=== PATIENT | female | born 1995 | race African-American/Black ===

== ENCOUNTER 2025-08-19 08:22 | Outpatient (REF) | payer OTHER, SELFPAY ==
[2025-08-19 13:17] LABS: Appearance Urine Cloudy; Glucose Urine UA Negative (Negative); PH 5.5 (5.0-9.0); Specific Gravity - Urine >= 1.030 (1.005-1.025); UMIC TRIGGER UACC YES
[2025-08-19 13:36] LABS: MANUAL DIFF FLAG NO
[2025-08-19 13:37] LABS: UACC Culture Trigger YES
[2025-08-19 13:43] LABS: Hematocrit 38.7 % (37.0-47.0); Hemoglobin 12.6 g/dl (12.0-16.0); Imm Gran Abs Auto 0.01 X10*3/uL (0.00-0.03); Imm Gran Pct Auto 0.2 % (0.0-0.4); Lymphocytes Absolute Auto 1.3 X10*3/uL (1.2-4.9); Mean Corpuscular HGB Conc 32.6 g/dl (31.0-35.0); Mean Corpuscular Hemoglobin 28.3 pg (27.0-33.0); Mean Corpuscular Volume 87.0 fL (80.0-98.0); NRBC Abs Auto 0.000 X10*3/uL (0.0-0.012); NRBC Pct Auto 0.0 /100WBC (0.0-0.2); Platelet Count 265 X10*3/uL (160-400); Red Blood Count 4.45 X10*6/uL (4.20-5.50); White Blood Count 5.2 X10*3/uL (4.8-10.8)
[2025-08-19 14:20] LABS: Alanine Aminotransferase 11 U/L (0-31); Albumin Level 4.5 g/dL (3.5-5.0); Alkaline Phosphatase 44 U/L (39-117); Anion Gap 11 (12-20); Aspartate Amino Transferase 24 U/L (5-31); Blood Urea Nitrogen 8 mg/dL (9-16); Calcium 9.2 mg/dL (8.4-10.2); Carbon Dioxide 25 mmol/L (22-29); Chloride 106 mmol/L (96-108); Cholesterol 142 mg/dL (<200); Estimated Glomerular Filt Rate > 60; HDL Cholesterol 39 mg/dL (>40); Magnesium 2.0 mg/dL (1.6-2.6); Potassium 4.0 mmol/L (3.3-5.1); Sodium 139 mmol/L (135-145); Total Protein 7.4 g/dL (6.5-8.0); Triglycerides 50 mg/dL (<150)
[2025-08-19 14:28] LABS: Folate 9.8 ng/mL (> or = 4.0); Vitamin B12 360 pg/mL (200-900)
[2025-08-19 14:45] LABS: Microalbum/Creatinine Ratio Ur 84.2 ug/mg cr (<30)
[2025-08-20 03:57] LABS: HBS Num1 0.20 mIU/mL (0-7.99); HBsAGNum1 0.53 S/CO (0.00-0.99); HIV Num 1 0.05 S/CO (0.00-0.99); Hepatitis B Surface Antigen Negative (Negative); ~HepC Num1 0.11 S/CO (0.00-0.79); ~Hepatitis B Surface Antibody NONREACTIVE (Nonreactive); ~Hepatitis C Antibody Nonreactive (Nonreactive)
[2025-08-23 21:34] LABS: VITAMIN D (1,25 OH) D3 66 pg/mL; Vit D (1,25-Dihydroxy) Total 66 pg/mL (18-72); Vitamin D (1,25 OH) D2 <8 pg/mL
== END 2025-08-19 08:23 | disposition home or self-care (01) ==
LOC: HO.HKASLDS 08:22
PROVIDERS: PCP Student in an Organized Health Care Education/Training Program; Visit Provider Student in an Organized Health Care Education/Training Program
DX: M25.552 Pain in left hip (principal); M32.9 Systemic lupus erythematosus, unspecified; L65.9 Nonscarring hair loss, unspecified; G40.909 Epilepsy, unspecified, not intractable, without status epilepticus; D50.9 Iron deficiency anemia, unspecified; F12.90 Cannabis use, unspecified, uncomplicated; G89.29 Other chronic pain; R26.89 Other abnormalities of gait and mobility; E66.9 Obesity, unspecified; Z98.890 Other specified postprocedural states; Z12.10 Encounter for screening for malignant neoplasm of intestinal tract, unspecified; Z98.84 Bariatric surgery status; Z68.31 Body mass index [BMI] 31.0-31.9, adult
CPT/HCPCS: 36415; 80053; 80061; 81001; 82043; 82570; 82607; 82652; 82746; 83036; 83735; 84443; 85025; 86706; 86803; 87086; 87340; 87389; 96127; 99202

== ENCOUNTER 2025-08-19 08:22 | Outpatient (AMB) | payer OTHER, SELFPAY ==
--- NOTE | 2025-08-19 08:28 | MHC.PC.OV ---
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 Required: No Accompanied by: Self / Same As Patient Allergies No Known Allergies Allergy (Verified 08/19/25 08:32) Medication List - Last Reconciled 08/19/25 by Naveed Pérez MD acetaminophen 500 mg PO Q6H PRN ferrous fumarate 325 mg PO DAILY hydroxychloroquine 200 mg PO BID levetiracetam 750 mg PO BID losartan 100 mg PO DAILY mycophenolate mofetil 1,000 mg PO BID Tobacco use date assessed: 08/19/25 Dental Screening Dental Screen Date: 08/19/25 Did you have a dental visit in the last 12 months?: Yes Did you have a dental problem in the last 6 months where you did not have access to dental care?: No Was dental information given to patient?: Patient has dentist HPI HPI Comments History of Present Illness Details History of Present Illness The patient is a 30-year-old female presenting to [facility] primary care. Systemic Lupus Erythematosus: The patient has a history of lupus, for which she takes hydroxychloroquine and mycophenolate mofetil. She was followed by a search advertising strategist in [place], whom she last saw in February. Her follow-up frequency was initially monthly, then changed to every two months. She reports a history of kidney issues when the lupus was first diagnosed, which were being monitored. Alopecia: The patient has alopecia, which she reports is related to her lupus. It presents as a single patch on the left side of her scalp, though she notes hair on the rest of her head has grown back. She was previously treated with steroid injections by a windrower operator whom she last saw in December. Seizure Disorder: The patient has a history of seizures, with the last episode occurring in 2021. She continues to take levetiracetam and states she also takes losartan for seizure prophylaxis. Chronic Left Hip Pain: The patient reports chronic and worsening pain in her left hip, which has caused a limp. This is the same hip where she had a pin placed at age 13 following a fracture. The pain has been persistent and has become worse despite significant weight loss following her gastric sleeve surgery in 2019. She has not yet tried physical therapy for the pain. Iron Deficiency Anemia: The patient reports taking iron supplements for anemia. Surgical History: - Gastric sleeve surgery in 2019. - Left hip pinning at age 13. Medications: - Iron for anemia - Hydroxychloroquine for lupus - Mycophenolate mofetil for lupus - Levetiracetam for seizures - Losartan, reported as being for seizures Social History: - Substance Use: Smokes marijuana, about 1.5 joints on her days off. - Tobacco Use: Denies cigarette use, but will smoke one occasionally under stress. - Alcohol Use: Denies drinking alcohol. - Employment: Works at [employer]. - Residence: Recently relocated from [place], [place]. - Weight Management: History of obesity with a weight of 297 pounds, status post gastric sleeve in 2019 with subsequent weight loss. Family History: - Reports her father is . Past Medical History - Systemic lupus erythematosus with associated alopecia and past kidney involvement. - Seizure disorder, last episode in 2021. - Iron deficiency anemia. - History of obesity, status post gastric sleeve surgery in 2019. Health Maintenance - The patient is establishing care as a new patient. - Pap smear: The patient's last Pap smear was approximately one year ago. - Labs have been ordered for HIV, hepatitis B, hepatitis C, a lipid panel, magnesium, and hemoglobin A1c. [facility] Medical History (Updated 08/19/25 @ 18:36 by Naveed Pérez MD) Class 1 obesity Chronic left hip pain Marijuana smoker Iron deficiency anemia Seizure disorder Alopecia Lupus (systemic lupus erythematosus) Surgical History (Updated 08/19/25 @ 18:36 by Naveed Pérez MD) History of bariatric surgery History of hip surgery H/O gastric sleeve History of surgery on lower extremity Family History (Updated 08/19/25 @ 08:37 by Koko Diaz CMA) Mother Hypertension Diabetes Asthma Cancer Social History (Updated 08/19/25 @ 08:37 by Koko Diaz CMA) Housing: Apartment Alcohol intake: current Comment: ocasionally Patient Tobacco Use Status: Current everyday Tobacco user e-Cigarette/Vaping Use: Currently Using Substance Use Type: Marijuana service: No Current occupational status: employed 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 1. Little interest or pleasure in doing things: not at all 2. Feeling down, depressed, or hopeless: not at all 3. Trouble falling or staying asleep, or sleeping too much: not at all 4. Feeling tired or having little energy: not at all 5. Poor appetite or overeating: not at all 6. Feeling bad about yourself - or that you are a failure or have let yourself or your family down: not at all 7. Trouble concentrating on things, such as reading the newspaper or watching television: not at all 8. Moving or speaking so slowly that other people could have noticed. Or the opposite - being so fidgety or restless that you have been moving around a lot more than usual: not at all 9. Thoughts that you would be better off or of hurting yourself in some way: not at all Total score: 0 Depression Screening Interpretation: Negative Depression Screening Done: Yes 83571 - PHQ-9 Billing: Yes Source: Developed by Drs. Sadiq Woodard, Odette Abebe, Hank Carr and colleagues, with an educational annmarie from [employer]. Thrive Questionnaire Date Thrive assessed: 08/19/25 I am a: Patient What is your living situation today?: I have a steady place to live Within the past 12 months, did the food you bought not last and you didn't have the money to get more?: I choose not to answer this question Within the past 12 months, did you worry whether your food would run out before you got money to buy more?: I choose not to answer this question Do you have trouble paying for medicines?: No Do you have trouble getting transportation to medical appointments?: No Do you have trouble paying your heating and electricity bill?: No Do you have trouble taking care of your child, family member or friend?: No Are you currently unemployed and looking for a job?: No Are you interested in more education?: No Please select the resources that you would like help with: None Currently or been in a relationship where the following occur: I choose not to answer THRIVE Score: 0 AUDIT C Alcohol Use Questionnaire (AUDIT-C) 1. How often do you have a drink containing alcohol?: Never Total Score: 0 MICHAEL-7 AMB Questionnaire MICHAEL-7 Date MICHAEL - 7 assessed: 08/19/25 Feeling nervous, anxious, or on edge: 0 = Not at all Not being able to stop or control worryin = Not at all Worrying too much about different things: 0 = Not at all Trouble relaxin = Not at all Being so restless that it is hard to sit still: 0 = Not at all Becoming easily annoyed or irritable: 0 = Not at all Feeling afraid as if something awful might happen: 0 = Not at all Total MICHAEL-7 score (0-4 normal; 5-9 mild; 10-14 moderate; 15-21 severe): 0 Source: Developed by Drs. Sadiq Woodard, Odette Abebe, Hank Carr and colleagues, with an educational annmarie from [employer]. MICHAEL-7 Assessment Billing MICHAEL-7 Assessment Tool: MICHAEL-7 Assessment 58136 Review of Systems Narrative Review of Systems - Neurological: Reports a history of seizures, but denies any episodes since 2021. - Musculoskeletal: Reports worsening chronic pain and limping involving the left hip. - Integumentary: Reports a patch of hair loss on the left side of her scalp. - Gynecological: Reports her last Pap smear was about a year ago. 10-point ROS reviewed and negative except as noted in HPI Physical exam (Primary Care) Vital Signs: Last Vital Signs Temp 98.1 F 08/19/25 08:37 Pulse 63 08/19/25 08:37 Resp 17 08/19/25 08:37 BP 113/76 08/19/25 08:37 Pulse Ox 98 08/19/25 08:37 Oxygen Delivery Method Room Air 08/19/25 08:37 BMI result Body Mass Index 31.2 Tobacco/Smoking Status: Tobacco use Status Tobacco use date assessed 08/19/25 08/19/25 08:39 Patient Tobacco Use Status Current everyday Tobacco 08/19/25 08:39 e-Cigarette/Vaping Use Currently Using 08/19/25 08:39 PHQ-9: PHQ-9 Score PHQ-9: Total score 0 08/19/25 08:31 Depression Screening Interpretation: Negative Thrive Assessment: Date of Thrive Assessment Date Thrive assessed 08/19/25 08/19/25 08:31 Currently or been in a relationship where the following occur: I choose not to answer Narrative Physical Exam General: Well-appearing, in no acute distress. Vital signs: Blood pressure not elevated. HEENT: Normocephalic, atraumatic. PERRLA, EOMI. Conjunctiva clear, sclera anicteric. Oropharynx clear, mucous membranes moist. TMs intact bilaterally. Neck: Supple, no lymphadenopathy, no thyromegaly, no JVD or carotid bruits. Cardiovascular: RRR, normal S1/S2, no murmurs, rubs, or gallops. Peripheral pulses 2+ and symmetric. No edema. Respiratory: Lungs clear to auscultation bilaterally, no wheezes, rales, or rhonchi. Normal effort. Abdomen: Soft, non-tender, non-distended. Normoactive bowel sounds. No hepatosplenomegaly, no masses. MSK: Full range of motion, no joint swelling or deformity. Normal gait. Left hip with pain and history of pin placement. Skin: Warm, dry, intact. No rashes, lesions, or pallor. Alopecia noted on the left side of the scalp. Neuro: Alert and oriented x3. Cranial nerves II-XII intact. Strength 5/5 throughout. Sensation intact. Reflexes 2+ symmetric. Normal coordination and gait. Psych: Appropriate mood and affect. Normal judgment and insight. Coding Level of Care Code New Pt Level 4 (71944) Diagnoses Lupus (systemic lupus erythematosus) M32.9 Alopecia L65.9 Seizure disorder G40.909 Iron deficiency anemia D50.9 History of bariatric surgery Z98.84 Marijuana smoker F12.90 History of hip surgery Z98.890 Chronic left hip pain M25.552; G89.29 Limping R26.89 Class 1 obesity E66.9 Additional Codes MICHAEL-7 Assessment Billing - MICHAEL-7 Assessment Tool: MICHAEL-7 Assessment 11028 ([id number]) PHQ-9 - 88060 - PHQ-9 Billing: Yes ([id number]) Assessment & Plan Assessment & Plan (1) Lupus (systemic lupus erythematosus): Code(s): M32.9 - Systemic lupus erythematosus, unspecified Category: Medical (2) Alopecia: Code(s): L65.9 - Nonscarring hair loss, unspecified Category: Medical (3) Seizure disorder: Code(s): G40.909 - Epilepsy, unspecified, not intractable, without status epilepticus Category: Medical (4) Iron deficiency anemia: Code(s): D50.9 - Iron deficiency anemia, unspecified Category: Medical (5) History of bariatric surgery: Code(s): Z98.84 - Bariatric surgery status Category: Surgical (6) Marijuana smoker: Code(s): F12.90 - Cannabis use, unspecified, uncomplicated Category: Medical (7) History of hip surgery: Code(s): Z98.890 - Other specified postprocedural states Category: Surgical (8) Chronic left hip pain: Code(s): M25.552 - Pain in left hip; G89.29 - Other chronic pain Category: Medical (9) Limping: Code(s): R26.89 - Other abnormalities of gait and mobility (10) Class 1 obesity: Code(s): E66.9 - Obesity, unspecified Category: Medical Plan Consent Patient was informed and verbally consented to the use of an ambient scribe for clinic note documentation during this visit. Plan 1. Establishing Care/Health Maintenance - Ordered baseline laboratory studies, including magnesium, lipid panel, HIV, and hepatitis panel. - A follow-up appointment is scheduled in two weeks to review lab results. - Will provide medication refills as needed until she can establish care with specialists. 2. Systemic Lupus Erythematosus - A referral will be placed for the patient to establish care with a local search advertising strategist for ongoing management. 3. Chronic Left Hip Pain - An X-ray of the left hip has been ordered to evaluate the current state. - A referral for physical therapy will be placed for her hip pain. - Acetaminophen 500 mg has been prescribed for pain, with a recommendation to avoid NSAIDs due to her lupus diagnosis. - A referral to orthopedics will be considered after the X-ray results are reviewed. 4. Alopecia - A referral to dermatology will be placed for evaluation. 5. Seizure Disorder - Continue current medications for seizure prophylaxis. Discussion Notes I have discussed with the patient the plan to help her establish care here. We will be placing referrals to rheumatology for her lupus and dermatology for her alopecia. Regarding her worsening left hip pain, I have ordered an X-ray and a referral to physical therapy. I explained that a referral to orthopedics would be more productive after we have imaging results. I have also prescribed acetaminophen for pain and advised her to avoid ibuprofen due to her history of lupus and potential effects on her kidneys. I informed her that we will order a panel of baseline labs today and that she should follow up with me in two weeks to review the results. I reassured her that I can manage her medication refills in the interim until she is seen by the specialists. Patient Instructions - You will need to get bloodwork done today; the lab is in this building. - A referral has been placed for an X-ray of your left hip. - You will be contacted to set up appointments with a search advertising strategist, a windrower operator, and a physical therapist. - For your hip pain, you can take acetaminophen (Tylenol). - It is important to avoid ibuprofen (Advil/Motrin) because of your lupus. - Please continue taking all of your current medications as prescribed. - Schedule a follow-up appointment to see me in two weeks to discuss your lab results. Medical Decision Making The patient is a 30-year-old female with a complex medical history, including systemic lupus erythematosus, seizure disorder, and a history of bariatric surgery, who presents today to establish primary care after relocating. The primary goals of this visit are to ensure continuity of care for her chronic conditions and to evaluate a new complaint of worsening left hip pain. Given her history of lupus with prior kidney involvement, NSAIDs are contraindicated for her hip pain; therefore, acetaminophen was prescribed as a safer alternative. The patient's hip pain is chronic, dating back to a childhood injury, but has worsened despite significant weight loss, which raises concern for underlying structural issues. An X-ray is the appropriate initial imaging step, and a referral to orthopedics will be deferred until imaging is complete to facilitate a more efficient specialist consultation. Physical therapy is also indicated to address potential biomechanical or musculoskeletal components of her pain. Referrals to rheumatology and dermatology are critical to re-establish management of her lupus and associated alopecia, as she has not seen these specialists since February and December, respectively. Baseline labs are ordered to assess her current health status as a new patient. A close follow-up in two weeks will allow for review of all results and adjustment of the plan as needed. Total time spent caring for the patient today was 30 minutes. This includes time spent before the visit reviewing the chart, time spent documenting, and time spent reviewing laboratory results, diagnostic imaging, medications, performing a medically necessary evaluation, counseling on diagnoses, care coordination. Orders: Orders XR hip LT w PEL1V Today Z98.890 - Other specified postprocedural states Hepatitis B Surface Antibody Today Z12.10 - Encounter for screening for malignant neoplasm of intestinal tract, unspecified Hepatitis C Antibody Today Z12.10 - Encounter for screening for malignant neoplasm of intestinal tract, unspecified Lipid Panel Today Z12.10 - Encounter for screening for malignant neoplasm of intestinal tract, unspecified Magnesium Today Z12.10 - Encounter for screening for malignant neoplasm of intestinal tract, unspecified Microalbumin, Random (w Creat) Today Z12.10 - Encounter for screening for malignant neoplasm of intestinal tract, unspecified TSH reflex Free T4 Today Z12.10 - Encounter for screening for malignant neoplasm of intestinal tract, unspecified UA CC w/rflx Micro + Cult Today Z12.10 - Encounter for screening for malignant neoplasm of intestinal tract, unspecified PT Evaluation and Treatment Today Z98.890 - Other specified postprocedural states Complete Blood Count Auto Diff Today Z12.10 - Encounter for screening for malignant neoplasm of intestinal tract, unspecified Comprehensive Met. Panel Today Z12.10 - Encounter for screening for malignant neoplasm of intestinal tract, unspecified Hemoglobin A1c Today Z12.10 - Encounter for screening for malignant neoplasm of intestinal tract, unspecified Hepatitis B Surface Antigen Today Z12.10 - Encounter for screening for malignant neoplasm of intestinal tract, unspecified HIV Ab/Ag Today Z12.10 - Encounter for screening for malignant neoplasm of intestinal tract, unspecified Vitamin B12 and Folate Today Z12.10 - Encounter for screening for malignant neoplasm of intestinal tract, unspecified Vitamin D 1,25 dihydroxy Today Z12.10 - Encounter for screening for malignant neoplasm of intestinal tract, unspecified Referrals Rheumatology Referral M32.9 - Systemic lupus erythematosus, unspecified Dermatology Referral L65.9 - Nonscarring hair loss, unspecified Medications: New acetaminophen 500 mg PO Q6H PRN 30 caps 0RF pain
--- OUTSIDE RECORDS SUMMARY | 2025-08-19 08:33 | XMS_ITS | Clinical Summary ---
Author Organization [facility] Address [address] [place], [place] [id number] Phone Care Team Providers Care Disulfurizer Tender Name Role Phone Pcp, Unknown Primary Care Provider Unavailabl e Social History Tobacco Use Types Packs/Day Years Used Date Smoking Tobacco: Never Assessed Comments Unknown Sex and Gender Information Value Date Recorded Sex Assigned at Not on file Legal Sex Female 10:58 AM EDT Gender Identity Not on file Sexual Orientation Not on file Plan of Treatment Not on file Medical Devices Not on file Insurance [place] [address] [place] [address] [place] [address] [place] [address] [place] [address] [place] [address] [place] [address] [place] [address] [employer] Member Subscriber Plan / Payer (Ef fective 2025-Present) Name:Emilia Phipps Relation to Subscriber:Self Name:Emilia Phipps Payer ID:[id number] Group ID:[id number] Type:Medicaid Address: [place] [id number] [facility] [employer] Care Teams Disulfurizer Tender Relationship Specialty Start Date End Date Pcp, Unknown PCP - General 03/30/25 Additional Source Comments The information contained in this document represents components of the legal health record. It is not the complete legal health record.[facility]
[2025-08-19 08:37] VITALS: BP 113/76; PULSE 63; RESP 17; TEMP 36.7; O2SAT 98; BMI 31.2
== END 2025-08-19 09:00 | disposition home or self-care (01) ==
LOC: HO.HMCFMS 08:23
PROVIDERS: Visit Provider Student in an Organized Health Care Education/Training Program
DX: M32.9 Systemic lupus erythematosus, unspecified (principal); L65.9 Nonscarring hair loss, unspecified; G40.909 Epilepsy, unspecified, not intractable, without status epilepticus; D50.9 Iron deficiency anemia, unspecified; Z98.84 Bariatric surgery status; F12.90 Cannabis use, unspecified, uncomplicated; Z98.890 Other specified postprocedural states; M25.552 Pain in left hip; G89.29 Other chronic pain; R26.89 Other abnormalities of gait and mobility; E66.9 Obesity, unspecified

== ENCOUNTER 2025-09-23 14:07 | Outpatient (AMB) | payer OTHER, SELFPAY ==
[2025-09-23 14:20] VITALS: BP 128/58; PULSE 65; TEMP 36.8; O2SAT 100; BMI 31.2
--- NOTE | 2025-09-23 14:20 | MHC.PC.OV ---
Vital Signs 09/23/25 14:20 Height 5 ft 8.5 in Weight 208 lb BMI 31.2 BP 128/58 L Blood Pressure Location Lt brachial Position Sitting Pulse 65 Pulse Source Pulse Oximeter Temp 98.3 F Temp Source Oral Pulse Oximetry (%) 100 Oxygen Delivery Method Room Air Intake Visit Reasons: 2 wk - lab review Intake Note: Wants to discuss body aches and muscle relaxer Accompanied by: Self / Same As Patient Allergies No Known Allergies Allergy (Verified 09/23/25 14:40) Medication List - Last Reconciled 09/24/25 by Naveed Pérez MD acetaminophen ER 650 mg PO Q12H PRN ferrous fumarate 325 mg PO DAILY hydroxychloroquine 200 mg PO BID levetiracetam 750 mg PO BID losartan 100 mg PO DAILY mycophenolate mofetil 1,000 mg (2 x 500 mg) PO BID nitrofurantoin macrocrystal 100 mg PO Q12H Tobacco use date assessed: 09/23/25 Dental Screening Dental Screen Date: 09/23/25 Did you have a dental visit in the last 12 months?: Yes Was dental information given to patient?: Patient has dentist HPI HPI Comments History of Present Illness Details History of Present Illness The patient is a 30 year old female presenting for follow-up for systemic lupus erythematosus, management of chronic pain, and review of laboratory results. Systemic lupus erythematosus: The patient was diagnosed with systemic lupus erythematosus in mid-2021 and understands that she is immunocompromised as a result. Her current medications include hydroxychloroquine (Plaquenil) and mycophenolate. She has had her eyes checked this year, which is required due to Plaquenil use. The patient feels emotionally distressed by the chronic nature of her illness, reporting that her symptoms seem to worsen when she discusses it and that she is trying to isolate herself. She has an appointment scheduled with a satellite dish installer for January but is looking for an earlier appointment. Chronic pain: The patient reports generalized body pain, particularly in her back, hips, and legs, which she associates with her physically demanding job at [employer]. She reports the pain can be severe, stating she woke up one morning unable to move. She recently finished a prescription for acetaminophen 500 mg, which she found ineffective. She has a history of using muscle relaxants for pain. Kidney disease: The patient has a history of seeing a pickle pumper, although it has been a while. She also reports a history of urinary tract infections from time to time. A previous physician, Dr. Mccullough, had informed her about protein in her urine. Iron deficiency anemia: The patient takes ferrous fumarate 325 mg every two days to avoid constipation. Medications: - Acetaminophen 500 mg: for pain (finished, not effective) - Hydroxychloroquine (Plaquenil): for lupus, taken twice a day - Levetiracetam (Keppra) - Losartan 100 mg - Mycophenolate - Ferrous fumarate 325 mg: for iron, taken every two days - Muscle relaxants (unspecified): for pain, taken in the past as needed at night Social History: - Employment: The patient works at [employer] in a role that is physically demanding and contributes to her body pain. - Social Support and Coping: The patient reports isolating herself from family, preferring to work and keep her mind busy as a way to cope with her chronic illness. - Diet: The patient reports eating eggs and using whipped cream in her coffee. Diagnostic Results: - Lab results were reviewed: - Complete Blood Count: White blood cells, red blood cells, hemoglobin, and hematocrit are good. - Comprehensive Metabolic Panel: Sodium, potassium, renal function (creatinine and GFR), and liver function are good. - Glucose: Normal; the patient is not diabetic or prediabetic. - Lipid Panel: Triglycerides and bad cholesterol are good; HDL is 39 mg/dL (goal >40 mg/dL). - Vitamins: Vitamin B12 is 360 (normal range 200-900), and vitamin D is good. - Folate and Thyroid Function: Good. - Urinalysis: Reveals dehydration, proteinuria, increased microalbumin, positive blood (attributed to menstruation), and positive nitrites. Past Medical History - Systemic lupus erythematosus, diagnosed in mid-2021. - History of seeing a pickle pumper. - History of recurrent urinary tract infections. Health Maintenance - The patient is eligible for and wants to receive the influenza vaccine due to her immunocompromised status from lupus. - The patient confirms she had her yearly eye exam with Dr. Chavez, which is necessary due to her hydroxychloroquine use. - Discussed dietary changes to help raise HDL cholesterol, such as minding fat and dairy intake. - Advised to contact her insurance to find a satellite dish installer with earlier availability. [facility] Medical History (Updated 12/18/25 @ 06:58 by Naveed Pérez MD) UTI (urinary tract infection) Albuminuria Microalbuminuria Class 1 obesity Chronic left hip pain Marijuana smoker Iron deficiency anemia Seizure disorder Alopecia Lupus (systemic lupus erythematosus) Surgical History History of bariatric surgery History of hip surgery H/O gastric sleeve History of surgery on lower extremity Family History Mother Hypertension Diabetes Asthma Cancer Social History Housing: Apartment Alcohol intake: current Comment: ocasionally Patient Tobacco Use Status: Former Tobacco user e-Cigarette/Vaping Use: Currently Using Substance Use Type: Marijuana service: No Current occupational status: employed Current occupation: [employer] Cognitive needs: No Hearing needs: No Vision needs: No Questionnaire PHQ-9 Over the last 2 weeks, how often have you been bothered by any of the following problems? 1. Little interest or pleasure in doing things: not at all 2. Feeling down, depressed, or hopeless: not at all 3. Trouble falling or staying asleep, or sleeping too much: not at all 4. Feeling tired or having little energy: not at all 5. Poor appetite or overeating: not at all 6. Feeling bad about yourself - or that you are a failure or have let yourself or your family down: not at all 7. Trouble concentrating on things, such as reading the newspaper or watching television: not at all 8. Moving or speaking so slowly that other people could have noticed. Or the opposite - being so fidgety or restless that you have been moving around a lot more than usual: not at all 9. Thoughts that you would be better off or of hurting yourself in some way: not at all Total score: 0 Depression Screening Interpretation: Negative Depression Screening Done: Yes 29504 - PHQ-9 Billing: Yes Source: Developed by Drs. Sadiq Woodard, Odette Abebe, Hank Carr and colleagues, with an educational annmarie from [employer]. Thrive Questionnaire Date Thrive assessed: 09/23/25 I am a: Patient What is your living situation today?: I have a steady place to live Within the past 12 months, did the food you bought not last and you didn't have the money to get more?: I choose not to answer this question Within the past 12 months, did you worry whether your food would run out before you got money to buy more?: I choose not to answer this question Do you have trouble paying for medicines?: No Do you have trouble getting transportation to medical appointments?: No Do you have trouble paying your heating and electricity bill?: No Do you have trouble taking care of your child, family member or friend?: No Do you have trouble with day-to-day activities such as bathing, preparing meals, shopping, managing finances, etc.?: No Are you currently unemployed and looking for a job?: No Are you interested in more education?: No Please select the resources that you would like help with: None Currently or been in a relationship where the following occur: I choose not to answer THRIVE Score: 0 MICHAEL-7 AMB Questionnaire MICHAEL-7 Date MICHAEL - 7 assessed: 09/23/25 Feeling nervous, anxious, or on edge: 0 = Not at all Not being able to stop or control worryin = Not at all Worrying too much about different things: 0 = Not at all Trouble relaxin = Not at all Being so restless that it is hard to sit still: 0 = Not at all Becoming easily annoyed or irritable: 0 = Not at all Feeling afraid as if something awful might happen: 0 = Not at all Total MICHAEL-7 score (0-4 normal; 5-9 mild; 10-14 moderate; 15-21 severe): 0 Source: Developed by Drs. Sadiq Woodard, Odette Abebe, Hank Carr and colleagues, with an educational annmarie from [employer]. MICHAEL-7 Assessment Billing MICHAEL-7 Assessment Tool: MICHAEL-7 Assessment 14862 Review of Systems Narrative Review of Systems - General: Reports feeling tired and down. - Musculoskeletal: Reports generalized body pain, specifically in her back, hips, and legs, with difficulty moving. - Psychiatric: Reports feeling emotionally exhausted, annoyed by her chronic illness, and is socially isolating herself. - Genitourinary: Reports a history of urinary tract infections from time to time. 10-point ROS reviewed and negative except as noted in HPI Physical exam (Primary Care) Vital Signs: Last Vital Signs Temp 98.3 F 09/23/25 14:20 Pulse 65 09/23/25 14:20 BP 128/58 L 09/23/25 14:20 Pulse Ox 100 09/23/25 14:20 Oxygen Delivery Method Room Air 09/23/25 14:20 BMI result Body Mass Index 31.2 Tobacco/Smoking Status: Tobacco use Status Tobacco use date assessed 09/23/25 09/23/25 14:21 Patient Tobacco Use Status Former Tobacco user 09/23/25 14:41 e-Cigarette/Vaping Use Currently Using 09/23/25 14:21 PHQ-9: PHQ-9 Score PHQ-9: Total score 0 09/23/25 15:14 Depression Screening Interpretation: Negative Thrive Assessment: Date of Thrive Assessment Date Thrive assessed 09/23/25 09/23/25 14:21 Currently or been in a relationship where the following occur: I choose not to answer Narrative Physical Exam General: Well-appearing, in no acute distress, but reports feeling down and tired due to chronic illness. Vital signs: Within normal limits. HEENT: Normocephalic, atraumatic. PERRLA, EOMI. Conjunctiva clear, sclera anicteric. Oropharynx clear, mucous membranes moist. TMs intact bilaterally. Patient advised to have regular eye exams due to hydroxychloroquine use. Neck: Supple, no lymphadenopathy, no thyromegaly, no JVD or carotid bruits. Cardiovascular: RRR, normal S1/S2, no murmurs, rubs, or gallops. Peripheral pulses 2+ and symmetric. No edema. Respiratory: Lungs clear to auscultation bilaterally, no wheezes, rales, or rhonchi. Normal effort. Abdomen: Soft, non-tender, non-distended. Normoactive bowel sounds. No hepatosplenomegaly, no masses. MSK: Reports pain in back and legs, possibly related to work and lupus. Full range of motion, no joint swelling or deformity. Normal gait. Skin: Warm, dry, intact. No rashes, lesions, or pallor. Neuro: Alert and oriented x3. Cranial nerves II-XII intact. Strength 5/5 throughout. Sensation intact. Reflexes 2+ symmetric. Normal coordination and gait. Psych: Reports feeling down and tired due to chronic illness. No current therapy, but advised to consider speaking with a therapist. Appropriate mood and affect. Normal judgment and insight. Office Procedures Flu Questionnaire Does the patient have a severe egg allergy?: No Does the patient have severe life threatening allergies?: No Does the patient have a fever or illness today?: No Has the patient ever had Guillain-[place] Syndrome?: No Has the patient ever had any past reaction to a flu shot?: No Immunizations Fluarix [id number] (PF) 45 mcg (15 mcg x 3)/0.5 mL IM syringe Performing Provider: Naveed Pérez MD Performing Location: [facility] [place] Family [facility] Administered by: Ciara Sanchez CMA on 09/23/25 15:14 Dose Route Admin Location Dispensed Lot Number Expiration Date [facility] Charger Tester 0.5 mL IM Left Deltoid 0.5 mL [id number] 04/06/26 [id number] [employer] VIS Given Date VIS Provided VIS Publication Date 09/23/25 Single Vaccine 24 Eligibility Eligibility Date Funding Source Not [facility] Eligible 09/23/25 Private Coding Level of Care Code Est Pt Level 3 (83997) Add On Problem Visit Only Diagnoses Lupus (systemic lupus erythematosus) M32.9 History of hip surgery Z98.890 Chronic left hip pain M25.552; G89.29 Seizure disorder G40.909 Albuminuria R80.9 Iron deficiency anemia D50.9 UTI (urinary tract infection) N39.0 Additional Codes MICHAEL-7 Assessment Billing - MICHAEL-7 Assessment Tool: MICHAEL-7 Assessment 62893 ([id number]) PHQ-9 - 73226 - PHQ-9 Billing: Yes ([id number]) Assessment & Plan Assessment & Plan (1) Lupus (systemic lupus erythematosus): Code(s): M32.9 - Systemic lupus erythematosus, unspecified Category: Medical (2) History of hip surgery: Code(s): Z98.890 - Other specified postprocedural states Category: Medical (3) Chronic left hip pain: Code(s): M25.552 - Pain in left hip; G89.29 - Other chronic pain Category: Medical (4) Seizure disorder: Code(s): G40.909 - Epilepsy, unspecified, not intractable, without status epilepticus Category: Medical (5) Albuminuria: Code(s): R80.9 - Proteinuria, unspecified Category: Medical (6) Iron deficiency anemia: Code(s): D50.9 - Iron deficiency anemia, unspecified Category: Medical (7) UTI (urinary tract infection): Code(s): N39.0 - Urinary tract infection, site not specified Category: Medical Plan Consent Patient was informed and verbally consented to the use of an ambient scribe for clinic note documentation during this visit. Plan 1. Chronic Pain - Discontinue acetaminophen 500 mg. - Prescribed acetaminophen 650 mg extended-release, to be taken one tablet every 12 hours as needed for arthritis-type pain. - Prescribed a muscle relaxant 10 mg to be taken at night; instructed the patient she can cut the tablet in half if it is too strong. - Counseled to continue conservative measures such as heating pads and warm showers. - Advised to avoid NSAIDs like ibuprofen to protect kidney function. 2. Systemic Lupus Erythematosus - Sent a refill for hydroxychloroquine (Plaquenil) to the pharmacy. - Ensured mycophenolate was refilled for a 30-day supply. - Advised the patient to call her insurance to find a satellite dish installer who may have earlier availability than her current appointment in January. - Acknowledged the emotional toll of the chronic illness and provided information for a teletherapy service, though the patient declined a referral at this time. 3. Urinary Tract Infection And Proteinuria - Based on positive nitrites in the urinalysis and a history of UTIs, a suspected urinary tract infection will be treated. - Prescribed Macrobid (nitrofurantoin), one tablet twice daily for 5 days. - Due to proteinuria and increased microalbumin on urinalysis concerning for lupus-related kidney involvement, a referral will be placed to Nephrology. - The clinic will submit the referral, and the specialist's office will contact the patient to schedule an appointment. 4. Preventative Care - The patient was advised to get the flu vaccine today. 5. Iron Deficiency Anemia Management - Hemoglobin and hematocrit levels are good. - The patient should continue taking ferrous fumarate as she currently does, every two days. 6. Dyslipidemia - HDL cholesterol is slightly low at 39 mg/dL. - Provided dietary counseling regarding foods that can impact cholesterol, such as dairy fats. - Plan to recheck labs in three months. Discussion Notes I spoke with the patient about her visit today. We discussed her body pain, and I recommended increasing her acetaminophen to the 650 mg ER formulation and adding a muscle relaxant for nighttime use. I explicitly advised against using NSAIDs like ibuprofen to preserve her kidney function, which is particularly important given her lupus diagnosis. We reviewed her recent lab results. While her blood counts, kidney function tests, and electrolytes were reassuring, the urinalysis showed proteinuria, increased microalbumin, and positive nitrites. I explained that protein in the urine can be a sign of kidney damage from lupus, and that we must monitor this closely. Consequently, I am placing a referral to a pickle pumper for further evaluation and have prescribed a course of Macrobid for a concurrent suspected UTI. I acknowledged the significant emotional distress and frustration she is experiencing due to her chronic illness. While she currently is not interested in therapy, I provided her with the contact information for a mental health service should she change her mind. We will send refills for her Plaquenil and Mycophenolate. We scheduled a follow-up visit in three months to recheck her labs and review her progress. Patient Instructions - You should get your flu shot, as it is recommended for you. - For your pain, start taking Acetaminophen 650 mg extended-release. You can take one pill in the morning and one at night. - We are also prescribing a muscle relaxant (10 mg) to take at night. If it makes you feel too loopy, you can cut the pill in half. - Avoid taking anti-inflammatory drugs like ibuprofen or Aleve, as they can be harmful to your kidneys. - You can use heating pads and warm showers for your muscle pain. - Take the prescribed antibiotic, Macrobid, one pill in the morning and one at night for five days to treat the urinary tract infection. - We are sending a referral to a kidney specialist (pickle pumper) for you. Their office will call you to schedule an appointment. - Please call your insurance company to ask for a list of in-network rheumatologists to see if you can get an appointment sooner than January. - Continue taking your iron pill every other day. - We have sent refills for your hydroxychloroquine (Plaquenil) and mycophenolate to your pharmacy. - Please schedule a follow-up visit here in three months to check your labs again. Medical Decision Making The patient is a 30-year-old female with a history of systemic lupus erythematosus who presented for medication refills, management of chronic pain, and review of labs. Her chief complaints were generalized body pain, especially in the back and hips, which is likely musculoskeletal and exacerbated by her physical job. Management includes symptomatic control with scheduled acetaminophen 650 mg ER and a muscle relaxant, with strict advice to avoid NSAIDs due to the risk of renal injury in the setting of lupus. Review of recent laboratory studies was significant for new-onset proteinuria and microalbuminuria, with positive nitrites on urinalysis. Although her serum creatinine and GFR are currently within normal limits, these urinary findings are highly concerning for lupus nephritis and warrant urgent evaluation. A referral to nephrology is placed for this reason. Concurrently, given the positive nitrites and patient's history of recurrent UTIs, she will be treated empirically with Macrobid. The patient expressed significant emotional distress related to her chronic illness. While she was not receptive to a formal mental health referral at this time, the option was provided for future consideration. Her chronic medications, including hydroxychloroquine and mycophenolate, were refilled. The plan includes a follow-up in three months for lab monitoring. Total Time Statement 20 min Total time spent caring for the patient today includes pre-visit chart review, documentation, review of laboratory and diagnostic imaging results, medication reconciliation, medically necessary evaluation, counseling on diagnoses, care coordination, ordering appropriate tests and medications, review of tests performed by other providers, reporting test results to the patient, and communication with other healthcare providers. Orders: Orders Influenza [id number] Immunization 09/23/25 Z23 - Encounter for immunization Referrals Nephrology Referral M32.9 - Systemic lupus erythematosus, unspecified, R80.9 - Proteinuria, unspecified Medications: New acetaminophen ER 650 mg PO Q12H PRN 60 tabs 0RF pain nitrofurantoin macrocrystal must administer with a meal/food 100 mg PO Q12H 10 caps 0RF Refilled hydroxychloroquine 200 mg PO BID 180 tabs 0RF Discontinued acetaminophen Discontinued Reason: Doctor's Order 500 mg PO Q6H PRN 30 caps 0RF pain
--- OUTSIDE RECORDS SUMMARY | 2025-09-23 18:54 | XMS_ITS | Clinical Summary ---
Author Organization [facility] Address [address] [place], [place] [id number] Phone Care Team Providers Care Paint Technician Name Role Phone Pcp, Unknown Primary Care [...] Medical Devices Not on file Insurance [place] [address] [place] [address] [place] [address] [place] [address] [place] [address] [place] [address] [place] [address] A[employer] Member Subscriber Plan / Payer (Ef fective 2025-Present) Name:Emilia Phipps Relation to Subscriber:Self Name:Emilia Phipps Payer ID:[id number] Group ID:[id number] Type:Medicaid Address: [place] [id number] [facility] [employer] Care Teams Paint Technician Relationship Specialty Start Date End Date Pcp, Unknown PCP - General 03/30/25 Additional Source Comments The information contained in this document represents components of the legal health record. It is not the complete legal health record.[facility]
== END 2025-09-23 15:16 | disposition home or self-care (01) ==
LOC: HO.HMCFMS 14:08
PROVIDERS: PCP Student in an Organized Health Care Education/Training Program; Visit Provider Student in an Organized Health Care Education/Training Program
DX: Z23 Encounter for immunization (principal)

== ENCOUNTER → 2025-09-23 14:07 | Outpatient (BNVA) | payer OTHER, SELFPAY | PROVIDERS: PCP Family Medicine; Visit Provider Student in an Organized Health Care Education/Training Program | DX: Z23 Encounter for immunization (principal); M32.9 Systemic lupus erythematosus, unspecified; M25.552 Pain in left hip; G89.29 Other chronic pain; G40.909 Epilepsy, unspecified, not intractable, without status epilepticus; R80.9 Proteinuria, unspecified; R50.9 Fever, unspecified; N39.0 Urinary tract infection, site not specified; Z87.891 Personal history of nicotine dependence | CPT/HCPCS: 90471; 90656; 96127; 99212 ==

== ENCOUNTER 2025-10-05 09:18 | Outpatient (AMB) | payer OTHER, SELFPAY ==
--- NOTE | 2025-10-05 09:19 | AM.OFFWIN_ITS ---
Intake Vital Signs 10/05/25 09:20 10/05/25 09:36 Height 5 ft 8.5 in Weight 210 lb BMI 31.5 BP 140/94 H 146/97 H Blood Pressure Location Lt brachial Rt brachial Position Sitting Sitting Respiration 16 Pulse 70 Pulse Source Pulse Oximeter Temp 98 F Temp Source Oral Pulse Oximetry (%) 98 Oxygen Delivery Method Room Air Intake Visit Reasons: EP- Coughing Blood, Body Aches Intake Note: EP complains of productive cough since SundayOct 03 and blood in sputum (today), headache, nausea this Sunday. Patient Tobacco Use Status: Former Tobacco user Allergies No Known Allergies Allergy (Verified 10/05/25 09:32) Do you need a note to return to daycare/school/sports/work: Yes HPI HPI Comments History of Present Illness Details History of Present Illness The patient is a 30 year old female with a past medical history of lupus and seizure disorder presenting with cough, congestion, headache, and nausea. - The patient's symptoms began on Sunday and have progressively worsened - She reports coughing up phlegm mixed w ith blood, which she states is intermittent. She reports the last time that she cough, there was no blood. - Associated symptoms include waking up with nausea, congestion, intermittent m ild headaches, body aches - She reports intermittent shortness of breath but denies current symptom. - She denies sore throat, diarrhea, and significant nasal drainage - The patient denies any fevers at home. - She was potentially exposed to illness after visiting her aunt for [place], where some family members were sick. - She took DayQuil today for her symptom s. - She reports no history of blood clots, prolonged immobility, or recent long trips. - She denies any calf pain or swelling - There is no known family history of bl ood clots. Review of Systems Constitutional: Negative for fevers, chills HENT: Reports congestion. Negative for sore throat, ear pain Respiratory: Reports cough. Denies current shortness of breath, reports intermittent dyspnea Cardiac: Negative for chest pain,leg edema Gastrointestinal: Reports nausea. Negative for abdominal pain, vomiting, diarrhea, Musculoskeletal: Reports generalized myalgias. Denies calf pain Neurological: Reports headaches Physical Exam General Appearance: Normal appearance, well developed. No acute distress HEENT: Normocephalic, atraumatic. External ears and ear canals normal. TM without erythema or bulging. Mild nasal congestion and drainage present. Oropharynx clear without erythema or exudate. No cervical lymphadenopathy present. Cardiac: Regular rate and rhythm. No murmurs. Pulmonary: No respiratory distress. Clear to auscultation bilaterally. Musculoskeletal: Moving all extremities spontaneously and against gravity. No Calf TTP. Mental Status: Alert and Oriented x 3 Psychiatric: Normal mood. Normal affect. [facility] Medical History (Updated 09/24/25 @ 06:58 by Naveed Pérez MD) UTI (urinary tract infection) Albuminuria Microalbuminuria Class 1 obesity Chronic left hip pain Marijuana smoker Iron deficiency anemia Seizure disorder Alopecia Lupus (systemic lupus erythematosus) Surgical History History of bariatric surgery History of hip surgery H/O gastric sleeve History of surgery on lower extremity Family History Mother Hypertension Diabetes Asthma Cancer Social History Housing: Apartment Alcohol intake: current Comment: ocasionally Patient Tobacco Use Status: Former Tobacco user e-Cigarette/Vaping Use: Currently Using Substance Use Type: Marijuana service: No Current occupational status: employed 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 Cognitive needs: No Hearing needs: No Vision needs: No Physical Exam Vital Signs: Last Vital Signs Temp 98 F 10/05/25 09:20 Pulse 70 10/05/25 09:20 Resp 16 10/05/25 09:20 BP 146/97 H 10/05/25 09:36 Pulse Ox 98 10/05/25 09:20 Oxygen Delivery Method Room Air 10/05/25 09:20 BMI result Body Mass Index 31.5 Assessment & Plan Assessment & Plan (1) Cough: Code(s): R05.9 - Cough, unspecified Qualifiers: Cough type: acute Qualified Code(s): R05.1 - Acute cough (2) Viral respiratory infection: Code(s): J98.8 - Other specified respiratory disorders; B97.89 - Other viral agents as the cause of diseases classified elsewhere (3) Elevated blood pressure reading in office with diagnosis of hypertension: Code(s): I10 - Essential (primary) hypertension Plan - The patient's presentation with productive cough with occasional blood in sputum, myalgias, headaches, congestion, nausea, and recent sick contact is most consistent with a viral infection. - Physical exam revealed clear lungs to auscultation and patient has been afebrile- low concern for pneumonia - While her history of lupus raises concern for more serious pathology like pulmonary embolism (PE), her other symptoms, clear lung exam, and normal HR and SpO2 make this less likely. - The plan is to obtain a nasal swab for COVID-19, influenza, and RSV. - Recommended supportive care with rest, fluids, and [id number] medications like mucinex. - Provided a work note for today and tomorrow. - Counseling was provided on emergency warning signs, such as new fevers, chest pain, shortness of breath, or coughing up large amounts of blood, and to seek prompt medical attention if these occur. - The patient's blood pressure was elevated upon measurement. - She has history of hypertension. - She reports taking her losartan directly prior to arrival < 30 minutes ago. - Discussed medication may not have yet taken affect - The plan is to continue her current medication as prescribed and monitor. Patient was informed and verbally consented to the use of an ambient scribe for clinic note documentation during the visit. Orders: Orders SARS-CoV2/FLU/RSV Today R09.89 - Other specified symptoms and signs involving the circulatory and respiratory systems Coding Level of Care Code Est Pt Level 3 (48712) Diagnoses Acute cough R05.1 Cough type: acute Viral respiratory infection J98.8; B97.89 Elevated blood pressure reading in office with diagnosis of hypertension I10
[2025-10-05 09:20] VITALS: BP 140/94; PULSE 70; RESP 16; TEMP 36.6; O2SAT 98; BMI 31.5
[2025-10-05 09:36] VITALS: BP 146/97
--- OUTSIDE RECORDS SUMMARY | 2025-10-05 09:40 | XMS_ITS | Clinical Summary ---
Author Organization [facility] Address [address] [place], [place] [address] Phone Care Team Providers Care Apron Operator Name Role Phone Pcp, Unknown Primary Care [...] Medical Devices Not on file Insurance [place] [place] [address] [place] [address] [place] [address] [place] [address] [place] [address] [place] [place] [address] [employer] Member Subscriber Plan / Payer (Ef fective 2025-Present) Name:Emilia Phipps Relation to Subscriber:Self Name:Emilia Phipps Payer ID:[id number] Group ID:[id number] Type:Medicaid Address: [place] [id number] [facility] A[facility] Care Teams Apron Operator Relationship Specialty Start Date End Date Pcp, Unknown PCP - General 03/30/25 Additional Source Comments The information contained in this document represents components of the legal health record. It is not the complete legal health record.[facility]
== END 2025-10-05 09:58 | disposition home or self-care (01) ==
LOC: HO.HMCWIS 09:18
PROVIDERS: PCP Student in an Organized Health Care Education/Training Program; Visit Provider Family Medicine
DX: R05.1 Acute cough (principal); J98.8 Other specified respiratory disorders; B97.89 Other viral agents as the cause of diseases classified elsewhere; I10 Essential (primary) hypertension

== ENCOUNTER 2025-10-05 09:18 | Outpatient (REF) | payer OTHER, SELFPAY ==
[2025-10-05 15:19] LABS: Resp Syncy Virus RNA Qual PCR NEGATIVE (Negative); SARS COV2 PCR INHOUSE POSITIVE (Negative)
== END 2025-10-05 09:19 | disposition home or self-care (01) ==
LOC: HO.LAB 09:18
PROVIDERS: PCP Student in an Organized Health Care Education/Training Program; Visit Provider Family Medicine
DX: R05.1 Acute cough (principal); J98.8 Other specified respiratory disorders; B97.89 Other viral agents as the cause of diseases classified elsewhere; I10 Essential (primary) hypertension; R09.89 Other specified symptoms and signs involving the circulatory and respiratory systems; Z87.891 Personal history of nicotine dependence
CPT/HCPCS: 87637